=== PATIENT | male | born 1975 | race African-American/Black ===

== ENCOUNTER 2025-06-18 18:35 | Emergency (ER) | payer OTHER, SELFPAY ==
[2025-06-18 18:49] VITALS: BP 139/103; PULSE 106; RESP 18; TEMP 37.2; O2SAT 98
--- NOTE | 2025-06-18 19:12 | ED_ITS ---
HPI - Skin/Abscess/Foreign Bdy General Chief complaint: Skin/Abscess/Foreign Body Stated complaint: Rash Time Seen by Provider: 06/18/25 19:10 Source: patient, RN notes reviewed and old records reviewed Mode of arrival: ambulatory Limitations: no limitations History of Present Illness HPI narrative: 49-year-old male who presents to [facility] with complaints rash on the right side of his neck which started on morning which is tingling feels like pins and needles Patient has area of rash with small blistery type of lesions noted on neck. Patient denies any fevers chills or sweats or any UTI symptoms. Patient does have history of diabetes and he is on insulin and Farxiga to manage his diabetes. Patient reports that he does have kidney disease stage III with creatine 1.4 and GFR 58 noted on recent labs within past month noted per patient's my chart/portal. Patient has no rash noted on his face, has applied some itch cream to rash on his neck. MD complaint: rash Onset (ago): day(s) (rash started morning) Location: neck (right side of neck) Severity: moderate Treatments prior to arrival: other (itch cream) Related Data Home Medications ?Medication ?Instructions ?Recorded ?Confirmed ?Last Taken ?Type amlodipine 10 mg tablet mg 06/18/25 Unknown History aspirin 81 mg capsule 81 mg PO DAILY 06/18/25 Unk nown History clonidine HCl 0.1 mg tablet mg 06/18/25 Unknown Histo ry dapagliflozin propanediol 10 mg mg 06/18/25 Unknown H istory tablet (Farxiga) hydralazine 25 mg tablet mg 06/18/25 Unknown History insulin glargine 100 unit/mL (3 unit subcut 06/18/25 Unknown History mL) subcutaneous pen (Lantus Solostar U-100 Insulin) insulin lispro 100 unit/mL subcut 06/18/25 Unknown Hi story subcutaneous pen (Humalog KwikPen (U-100) Insulin) losartan 100 mg tablet mg 06/18/25 Unknown History Allergies Allergy/AdvReac Type Severity Reaction Status Date / Time Iodinated Contrast Media AdvReac Mild Hives Verified 06/18/25 19:06 Review of Systems Review of Systems: CONSTITUTIONAL: Denies fever, chills, or sweats. CARDIOVASCULAR: Denies chest pain, palpitations, or edema. RESPIRATORY: Denies cough or dyspnea. SKIN: Reports rash to the right side of his neck which has some blistery areas no drainage described as having sensation of pins and needles and tingling in area of rash. MUSCULOSKELETAL: Denies joint pain or myalgia. NEUROLOGIC: Denies headache, numbness, or weakness. All systems reviewed & are unremarkable except as noted in HPI and below PMFSH Past Medical History Medical History (Updated 06/19/25 @ 20:01 by Gabby Fritz NP) Hypertension Kidney disease, chronic, stage III (GFR 30-59 ml/min) Diabetes Surgical History Surgical History (Updated 06/19/25 @ 19:56 by Gabyb Fritz NP) History of cholecystectomy Social History Social History (Updated 06/19/25 @ 19:56 by Gabby Fritz NP) Smoking status: Never smoker Alcohol intake: unknown Substance use type: does not use Living arrangements: with family Gender identity (if verbalized by the patient): Male Comments At time of signature, agree with nursing past medical, surgical, social and family history. There is no relevant family history pertinent to the presenting complaint Exam Narrative: GENERAL: Well-appearing, well-nourished, and in no acute distress. HEAD: Normocephalic, atraumatic. EYES: PERRLA, conjunctivae clear, and EOMI. ENT: Mucous membranes moist. Oropharynx without edema, erythema or lesions. NECK: Supple. No lymphadenopathy positive for rash to the right side of neck which is tingling and has pins and needles sensation to rash CHEST: Clear to auscultation. No respiratory distress. SAO2 98% on room air HEART: Regular rate and rhythm. SKIN: Warm, dry.? Patches of red raised rash to right side of neck which is tingling with pins and needles sensation since morning some small blistery lesions noted along rash.. NEURO:? Alert and oriented x3. PSYCH: Normal mood and affect Course Course Emergency Course: Patient is aware of diagnosis, understands and agrees to treatment plan.? Anticipatory guidance given.? Patient agrees to follow-up as directed and is aware of reasons to seek care at the emergency department. Portions of this record may have been created with voice recognition software Level of Care: Express Care Visit Vital Signs Vital signs: Vital Signs Temperature 37.2 C 06/18/25 18:49 Pulse Rate 106 H 06/18/25 18:49 Respiratory Rate 18 06/18/25 18:49 Blood Pressure 139/103 H 06/18/25 18:49 Pulse Oximetry 98 06/18/25 18:49 Oxygen Delivery Room Air 06/18/25 18:49 Temperature 37.2 C 06/18/25 18:49 Pulse Rate 86 06/18/25 19:45 Respiratory Rate 18 06/18/25 18:49 Blood Pressure 138/86 06/18/25 19:45 Pulse Oximetry 98 06/18/25 18:49 Oxygen Delivery Room Air 06/18/25 18:49 Reviewed MDM - Skin/Abscess/Foreign Bdy MDM Narrative Medical decision making narrative: Does not appear at this time to be erythema multiforme, bullous, SJS, TEN; no evidence at this time to suggest RMSF, endocarditis or Lyme disease; patient looks well, nontoxic and is tolerating oral intake; no neurologic signs or symptoms; no headache, photophobia or neck pain; afebrile; appropriate for initial outpatient treatment; discussed the importance of follow-up, patient agrees; question, viral exanthema, contact dermatitis, allergic dermatitis, eczema, urticaria, [ xx ]. No soft palate or uvula edema, no tongue, lip edema or other mucosal involvement, no respiratory compromise, no stridor, no wheezing, no wheezing, no history of syncope, no hypotension, no nausea, vomiting, or diarrhea.? Instructed patient to go to nearest ER immediately for any worsening symptoms including but not limited to: fever, spreading rash, pain, sore throat, headache, dizziness, chest pain, trouble breathing, or any symptoms concerning to the patient. Differential Diagnosis Differential diagnosis: Likely viral exanthem, herpes zoster, cellulitis and other (shingles rash) Medical Records Attestation: I reviewed the patient's medical records. Critical Care Time Critical Care Time Critical Care Time: No Discharge Plan Discharge Clinical Impression: Shingles Qualifiers: Herpes zoster complications: without complications Qualified Code(s): B02.9 - Zoster without complications Patient Disposition: Home Condition: Stable Instructions: Shingles (ED) Additional Instructions: Apply lidocaine cream or ointment to rash 3 times daily watch for any increasing infection--redness, swelling, drainage Tylenol for pain follow up with PCP in 7-10 days for a wound check recheck if develop fever, chills, increasing symptom Go to the ER if your symptoms become worse of if ANY new symptoms develop If your symptoms persist, change or worsen significantly before you can contact your personal physician then please, without delay, go to the emergency department for further evaluation. Follow-up with PCP in 7-10 days or sooner if needed Follow up with PCP soon in regards to your blood pressure which is elevated above threshold for referral. Blood pressure above 120/80 may indicate pre- hypertension. history of stage III kidney disease GFR 58 dosage reduction in Valtrex to 10 00mg BID for 7 days Patient Language: Greek Prescriptions: New valacyclovir [Valtrex] 1 gram tablet 1,000 mg PO Q12H Qty: 14 0RF Rx Instructions: make sure you drink plenty of water while taking No Action clonidine HCl 0.1 mg tablet hydralazine 25 mg tablet amlodipine 10 mg tablet losartan 100 mg tablet insulin lispro [Humalog KwikPen Insulin] 100 unit/mL insulin pen SUBCUT insulin glargine [Lantus Solostar U-100 Insulin] 100 unit/mL (3 mL) insulin pen SUBCUT dapagliflozin propanediol [Farxiga] 10 mg tablet aspirin 81 mg capsule 81 mg PO DAILY Follow-up/Referrals: Guerita,Darrius Vela PA-C [Primary Care Provider] Time of Disposition: 19:35 Quality Beck Coma Scale Eyes: Open Verbal: Oriented and Alert Motor: Follows Commands [place] Coma Total Score: 15
[2025-06-18 19:45] VITALS: BP 138/86; PULSE 86
== END 2025-06-18 19:52 | disposition home or self-care (01) ==
PROVIDERS: Emergency Provider Registered Nurse; PCP Physician Assistant
DX: B02.9 Zoster without complications (principal); I12.9 Hypertensive chronic kidney disease with stage 1 through stage 4 chronic kidney disease, or unspecified chronic kidney disease; E11.22 Type 2 diabetes mellitus with diabetic chronic kidney disease; N18.30 Chronic kidney disease, stage 3 unspecified; Z79.4 Long term (current) use of insulin; Z79.82 Long term (current) use of aspirin
CPT/HCPCS: 99203; G0463

== ENCOUNTER 2025-07-01 11:00 | Emergency (ER) | payer OTHER, SELFPAY ==
[2025-07-01 11:23] VITALS: BP 152/103; PULSE 105; RESP 16; TEMP 37.2; O2SAT 97
--- NOTE | 2025-07-01 11:59 | ED_ITS ---
HPI - General Adult General Chief complaint: Recheck/Abnormal Lab/Rx Stated complaint: shingles Time Seen by Provider: 07/01/25 11:14 History of Present Illness HPI narrative: 50-year-old male presents to the emergency department for evaluation for post herpetic neuralgia of from recent shingles. patient's completed his valacyclovir the shingles have dried. Patient did have follow-up with his primary care physician was started on Tylenol 3 and is ramping up his gabapentin dosing. Patient was initially started at 100 t.i.d. and is up to 200 mg t.i.d. patient reports he has had worsening intermittent sharp shooting pain. Related Data Home Medications ?Medication ?Instructions ?Recorded ?Confirmed ?Last Taken ?Type amlodipine 10 mg tablet mg 06/18/25 Unknown History aspirin 81 mg capsule 81 mg PO DAILY 06/18/25 Unk nown History clonidine HCl 0.1 mg tablet mg 06/18/25 Unknown Histo ry dapagliflozin propanediol 10 mg mg 06/18/25 Unknown H istory tablet (Farxiga) hydralazine 25 mg tablet mg 06/18/25 Unknown History insulin glargine 100 unit/mL (3 unit subcut 06/18/25 Unknown History mL) subcutaneous pen (Lantus Solostar U-100 Insulin) insulin lispro 100 unit/mL subcut 06/18/25 Unknown Hi story subcutaneous pen (Humalog KwikPen (U-100) Insulin) losartan 100 mg tablet mg 06/18/25 Unknown History Allergies Allergy/AdvReac Type Severity Reaction Status Date / Time Iodinated Contrast Media AdvReac Mild Hives Verified 07/01/25 11:23 [facility] Past Medical History Medical History (Updated 07/01/25 @ 12:14 by Shiv Wang MD) Hypertension Kidney disease, chronic, stage III (GFR 30-59 ml/min) Diabetes Surgical History Surgical History (Updated 06/19/25 @ 19:56 by Gabby Fritz NP) History of cholecystectomy Social History Social History (Updated 06/19/25 @ 19:56 by Gabby Fritz NP) Smoking status: Never smoker Alcohol intake: unknown Substance use type: does not use Living arrangements: with family Gender identity (if verbalized by the patient): Male Exam Narrative: APPEARANCE: Well appearing, no pain, no distress, well-nourished. HEAD: normocephalic, atraumatic. EYES: PERRLA/EOMI, conjunctivae clear. NOSE: Normal no drainage EARS:TMS clear with good light reflex. THROAT: Pharynx clear, no exudate. NECK: Supple. No adenopathy, no masses. RESPIRATORY: Airway patent, respirations nonlabored. Clear to auscultation bilaterally, no rales, rhonchi, wheezing. CARDIOVASCULAR: Regular rate and rhythm without murmurs rubs or gallops. ABDOMINAL: Soft, nontender, nondistended, normal bowel sounds MUSCULOSKELETAL: Moves all extremities. Strength/ROM intact, No edema, No calf tenderness. NEURO: Alert. Cranial nerves II through XII intact. Good gait. Good coordination SKIN: Healing shingles rash right lateral neck right chest Course Vital Signs Vital signs: Vital Signs Temperature 98.9 F 07/01/25 11:23 Pulse Rate 105 H 07/01/25 11:23 Respiratory Rate 16 07/01/25 11:23 Blood Pressure 152/103 H 07/01/25 11:23 Pulse Oximetry 97 07/01/25 11:23 Oxygen Delivery Room Air 07/01/25 11:23 Temperature 98.1 F 07/01/25 12:28 Pulse Rate 98 07/01/25 12:28 Respiratory Rate 16 07/01/25 12:28 Blood Pressure 138/97 H 07/01/25 12:28 Pulse Oximetry 98 07/01/25 12:28 Oxygen Delivery Room Air 07/01/25 11:23 Medical Decision Making MDM Narrative Medical decision making narrative: 50-year-old male presenting to the emergency department for evaluation for worsening post herpetic neuralgia. Patient is increasing his gabapentin as directed. Patient was provided additional medication for pain control including [place]. Patient was updated on the plan for treatment patient was comfortable with discharge and close follow-up. All questions concerns were addressed. No active shingles lesions were noted. 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 Stop taking the Tylenol with codeine and start taking the Tylenol with hydrocodone. Have close follow-up with Neurology. Have close follow-up with your primary care physician. If you have any worsening symptoms then please call or return to the emergency department. Patient Language: Albanian Prescriptions: New hydrocodone-acetaminophen 5-325 mg tablet 1 tablet PO Q12H PRN (Reason: pain) Qty: 14 0RF ondansetron 4 mg tablet,disintegrating 4 mg PO Q8H PRN (Reason: nausea and vomiting) Qty: 14 0RF No Action clonidine HCl 0.1 mg tablet hydralazine 25 mg tablet amlodipine 10 mg tablet losartan 100 mg tablet insulin lispro [Humalog KwikPen Insulin] 100 unit/mL insulin pen SUBCUT insulin glargine [Lantus Solostar U-100 Insulin] 100 unit/mL (3 mL) insulin pen SUBCUT dapagliflozin propanediol [Farxiga] 10 mg tablet aspirin 81 mg capsule 81 mg PO DAILY valacyclovir [Valtrex] 1 gram tablet 1,000 mg PO Q12H Qty: 14 0RF Rx Instructions: make sure you drink plenty of water while taking Follow-up/Referrals: Guerita,Darrius Vela PA-C [Primary Care Provider]
[2025-07-01] MEDS: HYDROcodone/acetaminophen (*CRX) 10-325 MG TABLET 1 TAB PO (12:05)
[2025-07-01] MEDS: KETOROLAC (*BKC) 60 MG/2 ML VIAL IM (12:05)
[2025-07-01 12:28] VITALS: BP 138/97; PULSE 98; RESP 16; TEMP 36.7; O2SAT 98
== END 2025-07-01 12:28 | disposition home or self-care (01) ==
PROVIDERS: Emergency Provider Emergency Medicine; PCP Physician Assistant
DX: B02.23 Postherpetic polyneuropathy (principal); E11.22 Type 2 diabetes mellitus with diabetic chronic kidney disease; I12.9 Hypertensive chronic kidney disease with stage 1 through stage 4 chronic kidney disease, or unspecified chronic kidney disease; N18.30 Chronic kidney disease, stage 3 unspecified; Z90.49 Acquired absence of other specified parts of digestive tract; Z79.4 Long term (current) use of insulin; Z79.82 Long term (current) use of aspirin; Z79.899 Other long term (current) drug therapy
CPT/HCPCS: 96372; 99283; A9270; J1885